=== PATIENT | male | born 1970 ===

== ENCOUNTER 2020-08-09 08:12 | Day surgery (SDC) | payer BC ==
[~2020-08-09 08:12] MED LIST: Lactated Ringers 1,000 ML IV SCH; Midazolam 1 MG/ML 2 ML SDV ONE; Propofol 200 MG/20 ML SDV ONE
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
--- NOTE | 2020-08-09 10:50 | PCM.OPNOTE ---
- General Post-Op/Procedure Note Date of Surgery/Procedure: 08/09/20 Operative Procedure(s): Colonoscopy w/ cecal and transverse colon biopsies. Cold rectal polypectomy. Pre Op Diagnosis: Change in bowel habits. Post-Op Diagnosis: Rectal polyp. Anesthesia Technique: MAC (ASA II) Primary Surgeon: Reggie Waterman Condition: Good Free Text/Narrative:: DICTATION [id number] CPT CODE [id number]
[2020-08-09] MEDS ORDERED: Lactated Ringers 1,000 ML IV SCH (11:00)
--- NOTE | 2020-08-09 11:00 | PCM.POSTAN ---
POST ANESTHESIA ASSESSMENT - MENTAL STATUS Mental Status: Alert, Oriented - VITAL SIGNS Vital Signs: Last Vital Signs Temp 36.2 C 08/09/20 08:20 Pulse 85 08/09/20 10:51 Resp 16 08/09/20 10:51 BP 118/78 08/09/20 10:51 Pulse Ox 95 08/09/20 10:51 - RESPIRATORY Respiratory Status: Respiratory Rate WNL, Airway Patent, O2 Saturation Stable - CARDIOVASCULAR CV Status: Pulse Rate WNL, Blood Pressure Stable - GASTROINTESTINAL GI Status: No Symptoms - PAIN Pain Score: 0 - POST OP HYDRATION Hydration Status: Adequate & Stable - OBSERVATIONS Free Text/Narrative:: No anesthesia problems
--- NOTE | 2020-08-09 11:17 | PCM48HPAN ---
Post Anesthesia Note - EVALUATION WITHIN 48HRS OF ANESTHETIC Vital Signs in Normal Range: Yes Patient Participated in Evaluation: Yes Respiratory Function Stable: Yes Airway Patent: Yes Cardiovascular Function Stable: Yes Hydration Status Stable: Yes Pain Control Satisfactory: Yes Nausea and Vomiting Control Satisfactory: Yes Mental Status Recovered: Yes Vital Signs: Last Vital Signs Temp 36.8 C 08/09/20 10:59 Pulse 85 08/09/20 10:59 Resp 12 08/09/20 10:59 BP 125/74 08/09/20 10:59 Pulse Ox 95 08/09/20 10:59 - COMMENTS/OBSERVATIONS Free Text/Narrative:: No anesthesia problems
--- NOTE | 2020-08-09 13:00 | OR ---
SURGEON: Reggie Waterman M.D. DATE OF PROCEDURE: 08/09/2020 OPERATION PERFORMED: Colonoscopy with random biopsies from the cecum and transverse colon and colorectal polypectomy. PRIMARY SURGEON: Reggie Waterman MD ANESTHESIA: MAC. ASA CLASSIFICATION: II. PREOPERATIVE DIAGNOSIS: Change in bowel habits. POSTOPERATIVE DIAGNOSIS: Rectal polyp. DESCRIPTION OF PROCEDURE: The patient was taken to the endoscopy room and positioned on the endoscopy table in the left lateral decubitus position. Time-out was called for appropriate identification of the patient and procedure. Monitored anesthesia care was provided. The colonoscope was inserted into the rectum and advanced with moderate difficulty to the cecum. Despite multiple maneuvers, I was not able to retroflex the colonoscope in the cecum. Because of his history of persistent diarrhea without an infectious disease cause, random biopsies from the cecum and transverse colon were obtained. I did not see any acute inflammatory changes and certainly there was no evidence of any ulceration in the colon itself. The cecum, ascending colon, hepatic flexure, transverse colon, splenic flexure, descending colon, and sigmoid colon were well visualized. Again, no tumors or polyps were seen. There were no diverticular changes nor was there any evidence of angiodysplasia. One small polyp was encountered in the rectum and this was removed with cold biopsy forceps. The colonoscope was retroflexed to visualize the anal orifice from above, and again, no tumors or polyps were seen and there were no acute hemorrhoidal changes. The colonoscope was then straightened, the rectum aspirated, and the colonoscope removed. The patient tolerated the procedure well and was taken to recovery room in stable condition. BARB / BÁRBARA /[id number]
== END 2020-08-09 11:35 | disposition home or self-care (01) ==
LOC: MW.SDS 08:12
PROVIDERS: ATTEND Surgery
DX: D12.8 Benign neoplasm of rectum (principal); Z87.891 Personal history of nicotine dependence; Z98.890 Other specified postprocedural states; Z80.8 Family history of malignant neoplasm of other organs or systems; Z72.89 Other problems related to lifestyle
CPT/HCPCS: 45380; 88305; J2250; J2704; J7120; 00811